=== PATIENT | female | born 1985 | race Caucasian/White ===

== ENCOUNTER 2023-06-19 22:24 | Emergency (ER) | payer OTHER, SELFPAY ==
[2023-06-19 22:26] VITALS: BP 150/100; PULSE 77; RESP 16; TEMP 36.6; O2SAT 98; BMI 39.9
--- NOTE | 2023-06-19 22:41 | PC.NURSE ---
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 The pain was tolerable, but she went to the chiropractor after work which is when the pain intensified. She took half of an Ibuprofen, but she was not sure if it was a 600mg or an 800mg. The chiropractor told her to stretch and use ice which she doing at home, but the pain became too much to handle, so she came to the ED.
--- NOTE | 2023-06-19 22:41 | ED.BACK1 ---
HPI - Back Pain/Injury General Chief Complaint: Back Pain/Injury Stated Complaint: back pain Time Seen by Provider: 06/19/23 22:37 Source: patient Mode of arrival: walk-in Limitations: no limitations History of Present Illness HPI Narrative: help client at [employer] today. States she was kneeling down and started to experience pain of her hips. She then went to a Chiropractor and now has back hurts. She has to sit straight. Has pain lying down or is she is not sitting up straight. No radicular symptoms. no fall injury MD elicited complaint: Reports back pain and back injury Related Data Home Medications Medication Instructions Recorded Confirmed No Known Home Medications 06/19/23 06/19/23 Allergies Allergy/AdvReac Type Severity Reaction Status Date / Time azithromycin Allergy Unknown Verified 06/19/23 22:33 Cephalosporins Allergy Unknown Verified 06/19/23 22:33 pseudoephedrine AdvReac Mild Rash Verified 06/19/23 22:33 [From [facility]] penicillin Allergy Unknown Uncoded 06/19/23 22:33 Review of Systems ROS Status of ROS 10 or more systems reviewed and unremarkable except as noted in history and below [facility] Social History Smoking status: Never smoker Exam Constitutional Vital Signs, click to edit/add: Last Vital Signs Temp 97.9 F 06/19/23 22:26 Pulse 77 06/19/23 22:26 Resp 16 06/19/23 22:26 BP 150/100 H 06/19/23 22:26 Pulse Ox 98 06/19/23 22:26 O2 Del Method Room Air 06/19/23 22:26 Common normals: no apparent distress, oriented x3, no limitations, healthy appearing, alert and well nourished [facility] Common normals: normocephalic and head/scalp atraumatic Eye Common normals: EOMs intact bilaterally and conjunctivae normal Respiratory Common normals: normal respiratory effort, no retractions, no use of accessory muscles and clear to auscultation bilaterally Cardio Common normals: regular rate, regular rhythm, S1 normal heart sound and S2 normal heart sound GI Common normals: Normal to inspection, nondistended, normoactive bowel sounds present, soft to palpation and non-tender Back & Pelvis Back image (female): 1. mild tenderness Extremity Common normals: normal to inspection and full ROM Neuro Common normals: oriented x3, CN's II-XII intact bilaterally, moves all extremities, no focal motor deficits and no sensory deficits noted Psych Appearance: grossly normal Course Vital Signs Vital signs: Vital Signs Temperature 97.9 F 06/19/23 22:26 Pulse Rate 77 06/19/23 22:26 Respiratory Rate 16 06/19/23 22:26 Blood Pressure 150/100 H 06/19/23 22:26 Pulse Oximetry 98 06/19/23 22:26 Oxygen Delivery Method Room Air 06/19/23 22:26 Temperature 97.9 F 06/19/23 22:26 Pulse Rate 77 06/19/23 22:26 Respiratory Rate 16 06/19/23 22:26 Blood Pressure 150/100 H 06/19/23 22:26 Pulse Oximetry 98 06/19/23 22:26 Oxygen Delivery Method Room Air 06/19/23 22:26 MDM - Back Pain/Injury MDM Narrative Medical decision making narrative: patient presents with acute muscular lower strain of her back. no radicular symptoms. Strained back at work today and after seeing a chiropractor her pain is now worse. No radicular abnorms or fever. Treated with prednisone and zanaflex and advised to follow up with her family doctor Discharge Plan Discharge Chief Complaint: Back Pain/Injury Clinical Impression: Strain of lumbar region Patient Disposition: Home, Self-Care Prescriptions / Home Meds: No Action No Known Home Medications Instructions: Low Back Strain (ED) Stand Alone Forms: Portal Instructions Referrals: Physician,Non-Staff, MD [Primary Care Provider] - 1 week Discharge Date/Time: 06/19/23 23:41
[2023-06-19] MEDS: TIZANIDINE HCL 4 MG TABLET PO (23:28)
[2023-06-19] MEDS: PREDNISONE 20 MG TABLET 40 MG PO (23:29)
== END 2023-06-19 23:41 | disposition home or self-care (01) ==
PROVIDERS: Emergency Provider Internal Medicine; Family Provider Family Medicine
DX: S39.012A Strain of muscle, fascia and tendon of lower back, initial encounter (principal); X50.9XXA Other and unspecified overexertion or strenuous movements or postures, initial encounter
CPT/HCPCS: 99283